=== PATIENT | male | born 1985 | race American Indian/Alaskan Native ===

== ENCOUNTER 2017-02-06 13:09 | Outpatient (CLI) | payer MEDICAID ==
--- NOTE | 2017-02-06 14:24 | XRay Report ---
LEFT ANKLE, 3 VIEWS: LEFT FOOT, 3 VIEWS: LEFT CALCANEUS, 2 VIEWS: History: Injury, pain. Bone mineralization is normal. A subtle nondisplaced transverse fracture is identified through the proximal shaft of the fifth metatarsal. No calcified callus is identified. The remaining bones of the left foot and ankle are intact and within normal limits. No significant joint pathology. The calcaneus is unremarkable. There is a linear radiodensity measuring 3 mm in the plantar soft tissues at the level of the tarsometatarsal junction. This is best demonstrated on the lateral image of the left foot. This could represent a radiopaque foreign body. Please correlate with the patient. IMPRESSION: Nondisplaced fracture of the fifth metatarsal shaft. Normal left ankle and calcaneus. Questionable soft tissue foreign body in the plantar soft tissues. See above and correlate with the image and patient.
== END 2017-02-06 13:10 | disposition home or self-care (01) ==
LOC: XRAY 13:09
PROVIDERS: ATTEND Family Medicine
DX: S92.352A Displaced fracture of fifth metatarsal bone, left foot, initial encounter for closed fracture (principal); X58.XXXA Exposure to other specified factors, initial encounter; Y93.89 Activity, other specified; Y92.89 Other specified places as the place of occurrence of the external cause; Y99.8 Other external cause status

== ENCOUNTER 2018-06-29 23:20 | Observation (INO) | payer MEDICAID ==
[2018-06-30 00:03] LABS: Basophils % (Auto) 0.3 % (0.0-1.8); Eosinophils # (Auto) 0.1 K/mm3 (0.0-0.4); Eosinophils % (Auto) 1.9 % (0.0-4.3); Hematocrit 36.8 % (35.5-45.6); Hemoglobin 12.4 gm/dl (11.8-15.2); Lymphocytes # (Auto) 1.7 K/mm3 (1.2-5.4); Lymphocytes % (Auto) 41.5 % (13.4-35.0); Mean Corpuscular HGB Conc 34 % (32-34); Mean Corpuscular Volume 91 fl (84-94); Monocytes # (Auto) 0.4 K/mm3 (0.0-0.8); Monocytes % (Auto) 8.8 % (0.0-7.3); Platelet Count 390 K/mm3 (140-440); Red Blood Count 4.06 M/mm3 (3.65-5.03); Red Cell Distribution Width 15.9 % (13.2-15.2)
[2018-06-30 00:33] LABS: Alanine Aminotransferase 46 units/L (7-56); Albumin 4.6 g/dL (3.9-5); Calcium 9.7 mg/dL (8.4-10.2); Hemolysis Index 2
[2018-06-30 01:06] LABS: BUN/Creatinine Ratio 12; Blood Urea Nitrogen 16 mg/dL (9-20)
[2018-06-30] MEDS ORDERED: NACL 0.9% 1000 ML 1,000 ML IV ONE (03:44)
[2018-06-30 04:36] LABS: Bilirubin,Urine NEG (Negative); Blood,Urine NEG (Negative); Color,Urine Straw (Yellow); Protein,Urine <15 mg/dL mg/dL (Negative); Urobilinogen,Urine < 2.0 mg/dL (<2.0)
[2018-06-30 04:45] LABS: Amphetamine Screen,Urine PRESUMPTIVE NEGATIVE; Benzodiazepines Screen,Urine PRESUMPTIVE NEGATIVE; Cannabinoid Screen,Urine PRESUMPTIVE NEGATIVE; Cocaine Screen,Urine PRESUMPTIVE NEGATIVE; Methadone Screen,Urine PRESUMPTIVE NEGATIVE; Opiate Screen,Urine PRESUMPTIVE NEGATIVE
[2018-06-30 04:48] LABS: RBC,Urine < 1.0 /HPF (0.0-6.0)
--- NOTE | 2018-06-30 04:57 | Emergency Department Report ---
History of Present Illness - General Chief Complaint: Overdose Stated Complaint: IBUPROFEN INGESTION Source: patient, family Mode of arrival: Wheelchair Limitations: Other - History of Present Illness Initial Comments: 32-year-old male past medical history of pica and autism presents to the hospital with accidental Motrin overdose. Patient witnessed his family member take Motrin and heat also took it thinking it was candy. At about 7:30 PM he took less than 200 pills of Motrin 200 mg. Chair Upholsterer reported that patient was initially lethargic but upon my examination at baseline mental status. No reports of vomiting. - Related Data Home Medications Medication Instructions Recorded Confirmed Last Taken Loratadine 10 mg PO DAILY 06/30/18 07/01/18 Unknown Mirtazapine 15 mg PO HS 06/30/18 07/01/18 Unknown QUEtiapine 300 mg PO HS 06/30/18 07/01/18 Unknown clonazePAM 2 mg PO HS 06/30/18 07/01/18 Unknown lamoTRIgine 200 mg PO BID 06/30/18 07/01/18 Unknown Allergies Allergy/AdvReac Type Severity Reaction Status Date / Time No Known Allergies Allergy Verified 07/01/18 11:52 ED Review of Systems ROS: Stated complaint: IBUPROFEN INGESTION Other details as noted in HPI Comment: All other systems reviewed and negative ED Past Medical Hx - Past Medical History Previous Medical History?: Yes Hx Psychiatric Treatment: Yes (aggresion) Additional medical history: Pica. Autsim - Surgical History Past Surgical History?: No - Social History Smoking Status: Never Smoker Substance Use Type: None - Medications Home Medications: Home Medications Medication Instructions Recorded Confirmed Last Taken Type Loratadine 10 mg PO DAILY 06/30/18 07/01/18 Unknown History Mirtazapine 15 mg PO HS 06/30/18 07/01/18 Unknown History QUEtiapine 300 mg PO HS 06/30/18 07/01/18 Unknown History clonazePAM 2 mg PO HS 06/30/18 07/01/18 Unknown History lamoTRIgine 200 mg PO BID 06/30/18 07/01/18 Unknown History ED Physical Exam - General Limitations: Other - Other Other exam information: General: No limitations, patient is alert in no acute distress Head exam: Atraumatic, normocephalic Eyes exam: Normal appearance, pupils equal reactive to light, extraocular movements intact ENT: Moist mucous membrane Neck exam: Normal inspection, full range of motion, no meningismus nontender Respiratory exam: Clear to auscultation bilateral, no wheezes, rales, crackles Cardiovascular: Normal rate and rhythm, normal heart sounds Abdomen: Soft, nondistended, and nontender, with normal bowel sounds, no rebound, or guarding Extremity: Full range of motion normal inspection no deformity Back: Normal Inspection, full range of motion, no tenderness Neurologic: Alert, cranial nerves intact, no motor or sensory deficit Psychiatric: normal affect, normal mood Skin: Warm, dry, intact ED Course Vital Signs 06/29/18 06/30/18 06/30/18 23:33 00:15 02:38 Temperature 97.3 F L Pulse Rate 118 H Respiratory 18 20 Rate Blood Pressure 120/88 Blood Pressure [Right] O2 Sat by Pulse 99 100 98 Oximetry 06/30/18 06/30/18 06/30/18 03:00 03:31 04:00 Temperature Pulse Rate 77 81 82 Respiratory 15 14 19 Rate Blood Pressure 110/76 110/76 120/86 Blood Pressure [Right] O2 Sat by Pulse Oximetry 06/30/18 06/30/18 06/30/18 04:31 05:00 05:55 Temperature Pulse Rate 67 75 Respiratory 17 13 16 Rate Blood Pressure 128/88 128/88 Blood Pressure 118/88 [Right] O2 Sat by Pulse 99 100 100 Oximetry 06/30/18 06/30/18 06/30/18 06:01 06:38 06:45 Temperature Pulse Rate 67 65 65 Respiratory 12 12 11 L Rate Blood Pressure 118/88 118/88 118/88 Blood Pressure [Right] O2 Sat by Pulse 100 Oximetry 06/30/18 06/30/18 06/30/18 06:51 07:01 07:11 Temperature Pulse Rate 63 79 Respiratory 12 16 12 Rate Blood Pressure 118/88 118/88 118/88 Blood Pressure [Right] O2 Sat by Pulse Oximetry 06/30/18 06/30/18 06/30/18 07:21 07:31 07:41 Temperature Pulse Rate Respiratory 14 13 15 Rate Blood Pressure 118/88 118/88 118/88 Blood Pressure [Right] O2 Sat by Pulse Oximetry 06/30/18 06/30/18 06/30/18 07:53 08:00 08:02 Temperature Pulse Rate 74 Respiratory 16 Rate Blood Pressure 120/84 121/92 Blood Pressure 121/72 [Right] O2 Sat by Pulse 99 100 Oximetry 06/30/18 06/30/18 06/30/18 08:10 08:21 08:31 Temperature Pulse Rate Respiratory Rate Blood Pressure 121/92 121/92 121/92 Blood Pressure [Right] O2 Sat by Pulse 84 99 90 Oximetry 06/30/18 06/30/18 06/30/18 08:40 08:55 09:11 Temperature Pulse Rate Respiratory Rate Blood Pressure 121/92 121/92 121/92 Blood Pressure [Right] O2 Sat by Pulse 91 93 Oximetry 06/30/18 06/30/18 06/30/18 09:21 09:31 09:40 Temperature Pulse Rate Respiratory Rate Blood Pressure 121/92 121/92 121/92 Blood Pressure [Right] O2 Sat by Pulse 99 99 Oximetry 06/30/18 06/30/18 06/30/18 09:55 10:00 10:11 Temperature Pulse Rate Respiratory Rate Blood Pressure 121/92 121/92 121/92 Blood Pressure [Right] O2 Sat by Pulse 93 78 L 82 L Oximetry 06/30/18 06/30/18 06/30/18 10:21 10:30 10:41 Temperature Pulse Rate Respiratory Rate Blood Pressure 121/92 121/92 121/92 Blood Pressure [Right] O2 Sat by Pulse 81 L 80 L 82 L Oximetry - Consultations Consultation #1: 06/30/18 04:52 I reconnected with poison control at this time. They do not recommend ETT in the hour. There are no current signs of QRS or QTC prolongation with ibuprofen overdose. Patient is at risk for metabolic acidosis. Discuss mild elevation of lactic acid. We'll continue to trend and look for improvement after hydration. If patient is at baseline mental status, no signs of GI bleeding clinically, and labs improve he may be discharged home as per poison control ED Medical Decision Making - Lab Data Result diagrams: 07/01/18 08:25 07/01/18 08:25 Lab Results 06/29/18 06/29/18 06/29/18 Range/Units 23:40 23:44 23:44 WBC 4.1 L (4.5-11.0) K/mm3 RBC 4.06 (3.65-5.03) M/mm3 Hgb 12.4 (11.8-15.2) gm/dl Hct 36.8 (35.5-45.6) % MCV 91 (84-94) fl MCH 30 (28-32) pg MCHC 34 (32-34) % RDW 15.9 H (13.2-15.2) % Plt Count 390 (140-440) K/mm3 Lymph % (Auto) 41.5 H (13.4-35.0) % [place] % (Auto) 8.8 H (0.0-7.3) % Eos % (Auto) 1.9 (0.0-4.3) % Baso % (Auto) 0.3 (0.0-1.8) % Lymph # 1.7 (1.2-5.4) K/mm3 [place] # 0.4 (0.0-0.8) K/mm3 Eos # 0.1 (0.0-0.4) K/mm3 Baso # 0.0 (0.0-0.1) K/mm3 Seg Neutrophils % 47.5 (40.0-70.0) % Seg Neutrophils # 2.0 (1.8-7.7) K/mm3 Sodium (137-145) mmol/L Potassium (3.6-5.0) mmol/L Chloride (98-107) mmol/L Carbon Dioxide (22-30) mmol/L Anion Gap mmol/L BUN (9-20) mg/dL Creatinine (0.8-1.5) mg/dL Estimated GFR ml/min BUN/Creatinine Ratio % Glucose (75-100) mg/dL Lactic Acid (0.7-2.0) mmol/L Calcium (8.4-10.2) mg/dL Total Bilirubin (0.1-1.2) mg/dL AST (5-40) units/L ALT (7-56) units/L Alkaline Phosphatase (35-129) units/L Total Protein (6.3-8.2) g/dL Albumin (3.9-5) g/dL Albumin/Globulin Ratio % Urine Color (Yellow) Urine Turbidity (Clear) Urine pH (5.0-7.0) Ur Specific [place] (1.003-1.030) Urine Protein (Negative) mg/dL Urine Glucose (UA) (Negative) mg/dL Urine Ketones (Negative) mg/dL Urine Blood (Negative) Urine Nitrite (Negative) Urine Bilirubin (Negative) Urine Urobilinogen (<2.0) mg/dL Ur Leukocyte Esterase (Negative) Urine WBC (Auto) (0.0-6.0) /HPF Urine RBC (Auto) (0.0-6.0) /HPF U Epithel Cells (Auto) (0-13.0) /HPF Salicylates (2.8-20.0) mg/dL Urine Opiates Screen Urine Methadone Screen Acetaminophen < 5.0 L (10.0-30.0) ug/mL Ur Barbiturates Screen Ur Phencyclidine Scrn Ur Amphetamines Screen U Benzodiazepines Scrn Urine Cocaine Screen U Marijuana (THC) Screen Drugs of Abuse Note Plasma/Serum Alcohol < 0.01 (0-0.07) % 06/29/18 06/29/18 06/30/18 Range/Units 23:45 23:55 00:29 WBC (4.5-11.0) K/mm3 RBC (3.65-5.03) M/mm3 Hgb (11.8-15.2) gm/dl Hct (35.5-45.6) % MCV (84-94) fl MCH (28-32) pg MCHC (32-34) % RDW (13.2-15.2) % Plt Count (140-440) K/mm3 Lymph % (Auto) (13.4-35.0) % [place] % (Auto) (0.0-7.3) % Eos % (Auto) (0.0-4.3) % Baso % (Auto) (0.0-1.8) % Lymph # (1.2-5.4) K/mm3 [place] # (0.0-0.8) K/mm3 Eos # (0.0-0.4) K/mm3 Baso # (0.0-0.1) K/mm3 Seg Neutrophils % (40.0-70.0) % Seg Neutrophils # (1.8-7.7) K/mm3 Sodium 139 (137-145) mmol/L Potassium 4.5 (3.6-5.0) mmol/L Chloride 94.9 L (98-107) mmol/L Carbon Dioxide 24 (22-30) mmol/L Anion Gap 25 mmol/L BUN 16 (9-20) mg/dL Creatinine 1.3 (0.8-1.5) mg/dL Estimated GFR > 60 ml/min BUN/Creatinine Ratio 12 % Glucose 93 (75-100) mg/dL Lactic Acid 2.60 H* (0.7-2.0) mmol/L Calcium 9.7 (8.4-10.2) mg/dL Total Bilirubin < 0.20 (0.1-1.2) mg/dL AST 39 (5-40) units/L ALT 46 (7-56) units/L Alkaline Phosphatase 105 (35-129) units/L Total Protein 7.8 (6.3-8.2) g/dL Albumin 4.6 (3.9-5) g/dL Albumin/Globulin Ratio 1.4 % Urine Color (Yellow) Urine Turbidity (Clear) Urine pH (5.0-7.0) Ur Specific [place] (1.003-1.030) Urine Protein (Negative) mg/dL Urine Glucose (UA) (Negative) mg/dL Urine Ketones (Negative) mg/dL Urine Blood (Negative) Urine Nitrite (Negative) Urine Bilirubin (Negative) Urine Urobilinogen (<2.0) mg/dL Ur Leukocyte Esterase (Negative) Urine WBC (Auto) (0.0-6.0) /HPF Urine RBC (Auto) (0.0-6.0) /HPF U Epithel Cells (Auto) (0-13.0) /HPF Salicylates < 0.3 L (2.8-20.0) mg/dL Urine Opiates Screen Urine Methadone Screen Acetaminophen (10.0-30.0) ug/mL Ur Barbiturates Screen Ur Phencyclidine Scrn Ur Amphetamines Screen U Benzodiazepines Scrn Urine Cocaine Screen U Marijuana (THC) Screen Drugs of Abuse Note Plasma/Serum Alcohol (0-0.07) % 06/30/18 06/30/18 06/30/18 Range/Units 02:06 04:25 04:25 WBC (4.5-11.0) K/mm3 RBC (3.65-5.03) M/mm3 Hgb (11.8-15.2) gm/dl Hct (35.5-45.6) % MCV (84-94) fl MCH (28-32) pg MCHC (32-34) % RDW (13.2-15.2) % Plt Count (140-440) K/mm3 Lymph % (Auto) (13.4-35.0) % [place] % (Auto) (0.0-7.3) % Eos % (Auto) (0.0-4.3) % Baso % (Auto) (0.0-1.8) % Lymph # (1.2-5.4) K/mm3 [place] # (0.0-0.8) K/mm3 Eos # (0.0-0.4) K/mm3 Baso # (0.0-0.1) K/mm3 Seg Neutrophils % (40.0-70.0) % Seg Neutrophils # (1.8-7.7) K/mm3 Sodium (137-145) mmol/L Potassium (3.6-5.0) mmol/L Chloride (98-107) mmol/L Carbon Dioxide (22-30) mmol/L Anion Gap mmol/L BUN (9-20) mg/dL Creatinine (0.8-1.5) mg/dL Estimated GFR ml/min BUN/Creatinine Ratio % Glucose (75-100) mg/dL Lactic Acid 2.90 H* (0.7-2.0) mmol/L Calcium (8.4-10.2) mg/dL Total Bilirubin (0.1-1.2) mg/dL AST (5-40) units/L ALT (7-56) units/L Alkaline Phosphatase (35-129) units/L Total Protein (6.3-8.2) g/dL Albumin (3.9-5) g/dL Albumin/Globulin Ratio % Urine Color Straw (Yellow) Urine Turbidity Clear (Clear) Urine pH 5.0 (5.0-7.0) Ur Specific [place] 1.008 (1.003-1.030) Urine Protein <15 mg/dl (Negative) mg/dL Urine Glucose (UA) Neg (Negative) mg/dL Urine Ketones Neg (Negative) mg/dL Urine Blood Neg (Negative) Urine Nitrite Neg (Negative) Urine Bilirubin Neg (Negative) Urine Urobilinogen < 2.0 (<2.0) mg/dL Ur Leukocyte Esterase Neg (Negative) Urine WBC (Auto) 1.0 (0.0-6.0) /HPF Urine RBC (Auto) < 1.0 (0.0-6.0) /HPF U Epithel Cells (Auto) < 1.0 (0-13.0) /HPF Salicylates (2.8-20.0) mg/dL Urine Opiates Screen Presumptive negative Urine Methadone Screen Presumptive negative Acetaminophen (10.0-30.0) ug/mL Ur Barbiturates Screen Presumptive negative Ur Phencyclidine Scrn Presumptive negative Ur Amphetamines Screen Presumptive negative U Benzodiazepines Scrn Presumptive negative Urine Cocaine Screen Presumptive negative U Marijuana (THC) Screen Presumptive negative Drugs of Abuse Note Disclamer Plasma/Serum Alcohol (0-0.07) % 06/30/18 06/30/18 Range/Units 05:54 06:55 WBC (4.5-11.0) K/mm3 RBC (3.65-5.03) M/mm3 Hgb (11.8-15.2) gm/dl Hct (35.5-45.6) % MCV (84-94) fl MCH (28-32) pg MCHC (32-34) % RDW (13.2-15.2) % Plt Count (140-440) K/mm3 Lymph % (Auto) (13.4-35.0) % [place] % (Auto) (0.0-7.3) % Eos % (Auto) (0.0-4.3) % Baso % (Auto) (0.0-1.8) % Lymph # (1.2-5.4) K/mm3 [place] # (0.0-0.8) K/mm3 Eos # (0.0-0.4) K/mm3 Baso # (0.0-0.1) K/mm3 Seg Neutrophils % (40.0-70.0) % Seg Neutrophils # (1.8-7.7) K/mm3 Sodium (137-145) mmol/L Potassium (3.6-5.0) mmol/L Chloride (98-107) mmol/L Carbon Dioxide (22-30) mmol/L Anion Gap mmol/L BUN (9-20) mg/dL Creatinine (0.8-1.5) mg/dL Estimated GFR ml/min BUN/Creatinine Ratio % Glucose (75-100) mg/dL Lactic Acid 2.30 H* 2.50 H* (0.7-2.0) mmol/L Calcium (8.4-10.2) mg/dL Total Bilirubin (0.1-1.2) mg/dL AST (5-40) units/L ALT (7-56) units/L Alkaline Phosphatase (35-129) units/L Total Protein (6.3-8.2) g/dL Albumin (3.9-5) g/dL Albumin/Globulin Ratio % Urine Color (Yellow) Urine Turbidity (Clear) Urine pH (5.0-7.0) Ur Specific [place] (1.003-1.030) Urine Protein (Negative) mg/dL Urine Glucose (UA) (Negative) mg/dL Urine Ketones (Negative) mg/dL Urine Blood (Negative) Urine Nitrite (Negative) Urine Bilirubin (Negative) Urine Urobilinogen (<2.0) mg/dL Ur Leukocyte Esterase (Negative) Urine WBC (Auto) (0.0-6.0) /HPF Urine RBC (Auto) (0.0-6.0) /HPF U Epithel Cells (Auto) (0-13.0) /HPF Salicylates (2.8-20.0) mg/dL Urine Opiates Screen Urine Methadone Screen Acetaminophen (10.0-30.0) ug/mL Ur Barbiturates Screen Ur Phencyclidine Scrn Ur Amphetamines Screen U Benzodiazepines Scrn Urine Cocaine Screen U Marijuana (THC) Screen Drugs of Abuse Note Plasma/Serum Alcohol (0-0.07) % - EKG Data -: EKG Interpreted by [place] EKG shows normal: sinus rhythm, axis (qrs 54), QRS complexes (qrsd 98), ST-T waves (no stemi, qrc 482) Rate: tachycardia (117) - EKG Data 06/30/18 04:59 Repeat EKG sinus rate 83 without acute changes. QRS axis 76, QRS [id number], QTC 473 - Medical Decision Making Patient's main risk from Motrin ingestion is metabolic acidosis as well as GI bleed from NSAIDs. Patient will be monitored for both in the ED. If he remains asymptomatic an elevated lactic acid improves he may be discharged home. Patient treated in the ED with IV hydration. He will be signed out to Dr Almeida to reassess for discharge. - Differential Diagnosis overdose, acidosis Critical care attestation.: If time is entered above; I have spent that time in minutes in the direct care of this critically ill patient, excluding procedure time. ED Disposition Clinical Impression: Motrin overdose Disposition: DC-01 TO HOME OR SELFCARE Is pt being admited?: No Does the pt Need Aspirin: No Condition: Stable
[2018-06-30] MEDS ORDERED: PROTONIX IV ONE (06:06)
--- NOTE | 2018-06-30 09:15 | History and Physical Report ---
History of Present Illness Date of examination: 06/30/18 Date of admission: 06/30/18 08:07 Chief complaint: Ibuprofen overdose History of present illness: 32-year-old male with past medical history of PICA and autism presents to the hospital with accidental Motrin overdose. Patient witnessed his caregiver to take Motrin thinking it was candy. Caregiver believes At about 7:30 PM he might have taken less than 200 pills of Motrin 200 mg. Ship Cleaner reported that patient was initially lethargic but upon my examination at baseline mental status. No reports of vomiting. He was admitted for further evaluation and management. Past Medical Hx - Past Medical History Previous Medical History?: Yes Hx Psychiatric Treatment: Yes (aggresion) Additional medical history: Pica. Autsim - Surgical History Past Surgical History?: No - Social History Smoking Status: Never Smoker Substance Use Type: None - Family History Unobtainable Medications and Allergies Allergies Allergy/AdvReac Type Severity Reaction Status Date / Time No Known Allergies Allergy Verified 07/01/18 11:52 Home Medications Medication Instructions Recorded Confirmed Last Taken Type Loratadine 10 mg PO DAILY 06/30/18 07/01/18 Unknown History Mirtazapine 15 mg PO HS 06/30/18 07/01/18 Unknown History QUEtiapine 300 mg PO HS 06/30/18 07/01/18 Unknown History clonazePAM 2 mg PO HS 06/30/18 07/01/18 Unknown History lamoTRIgine 200 mg PO BID 06/30/18 07/01/18 Unknown History Active Meds: Active Medications Sodium Chloride (Nacl 0.9% 1000 Ml) 1,000 mls @ 100 mls/hr IV DIRECT LAUREN Miscellaneous Medication (Clonazepam) 2 mg PO HS LAUREN Miscellaneous Medication (Lamotrigine) 200 mg PO BID LAUREN Miscellaneous Medication (Loratadine) 10 mg PO DAILY LAUREN Miscellaneous Medication (Mirtazapine) 15 mg PO HS LAUREN Miscellaneous Medication (Quetiapine) 300 mg PO HS LAUREN Review of Systems ROS unobtainable: due to mental status Exam - Physical Exam Narrative exam: limited exam, not cooperative with physical exam. - Constitutional Vitals: Temp Pulse Resp BP Pulse Ox 97.3 F L 74 16 121/72 100 06/29/18 23:33 06/30/18 08:02 06/30/18 08:02 06/30/18 08:02 06/30/18 08:02 General appearance: Present: no acute distress Results - Labs CBC & Chem 7: 07/01/18 08:25 07/01/18 08:25 Labs: Abnormal lab results 06/29/18 06/29/18 06/29/18 Range/Units 23:40 23:44 23:45 WBC 4.1 L (4.5-11.0) K/mm3 RDW 15.9 H (13.2-15.2) % Lymph % (Auto) 41.5 H (13.4-35.0) % [place] % (Auto) 8.8 H (0.0-7.3) % Chloride (98-107) mmol/L Lactic Acid (0.7-2.0) mmol/L Salicylates < 0.3 L (2.8-20.0) mg/dL Acetaminophen < 5.0 L (10.0-30.0) ug/mL 06/29/18 06/30/18 06/30/18 Range/Units 23:55 00:29 02:06 WBC (4.5-11.0) K/mm3 RDW (13.2-15.2) % Lymph % (Auto) (13.4-35.0) % [place] % (Auto) (0.0-7.3) % Chloride 94.9 L (98-107) mmol/L Lactic Acid 2.60 H* 2.90 H* (0.7-2.0) mmol/L Salicylates (2.8-20.0) mg/dL Acetaminophen (10.0-30.0) ug/mL 06/30/18 06/30/18 Range/Units 05:54 06:55 WBC (4.5-11.0) K/mm3 RDW (13.2-15.2) % Lymph % (Auto) (13.4-35.0) % [place] % (Auto) (0.0-7.3) % Chloride (98-107) mmol/L Lactic Acid 2.30 H* 2.50 H* (0.7-2.0) mmol/L Salicylates (2.8-20.0) mg/dL Acetaminophen (10.0-30.0) ug/mL Assessment and Plan Motrin overdose, unintentional Autism, h/o PICA h/o lactic acidosis, likely from overdose - monitor clinically - resume home meds, iv fluid - monitor CBC/BMP, sitter at bedside - regular diet, possible d/c in the am
[2018-06-30] MEDS ORDERED: NACL 0.9% 1000 ML 1,000 ML IV SCH (10:00)
[2018-06-30] MEDS ORDERED: LAMOTRIGINE 200 MG PO SCH (10:00)
[2018-06-30] MEDS ORDERED: NON-FORMULARY (Loratadine 10 MG) PO SCH (10:00)
[2018-06-30] MEDS: LaMICtal PO SCH ×2 (12:59→23:32)
[2018-06-30] MEDS: CLARITIN PO SCH (12:59)
[2018-06-30] MEDS ORDERED: ZOFRAN IV PRN (19:33)
[2018-06-30] MEDS ORDERED: CLONAZEPAM 2 MG PO SCH (22:00)
[2018-06-30] MEDS ORDERED: QUETIAPINE 300 MG PO SCH (22:00)
[2018-06-30] MEDS ORDERED: NON-FORMULARY (Mirtazapine 15 MG) PO SCH (22:00)
[2018-06-30] MEDS ORDERED: REMERON PO SCH (22:00)
[2018-07-01 05:40] VITALS: BP 97/64
[2018-07-01 08:50] LABS: Basophils % (Auto) 0.4 % (0.0-1.8); Eosinophils # (Auto) 0.1 K/mm3 (0.0-0.4); Eosinophils % (Auto) 0.8 % (0.0-4.3); Hematocrit 36.2 % (35.5-45.6); Lymphocytes % (Auto) 12.6 % (13.4-35.0); Mean Corpuscular HGB Conc 33 % (32-34); Mean Corpuscular Volume 91 fl (84-94); Monocytes # (Auto) 1.1 K/mm3 (0.0-0.8); Monocytes % (Auto) 13.8 % (0.0-7.3); Platelet Count 340 K/mm3 (140-440); Red Cell Distribution Width 16.1 % (13.2-15.2)
[2018-07-01] MEDS: LaMICtal PO SCH (08:59)
[2018-07-01] MEDS: CLARITIN PO SCH (08:59)
[2018-07-01 09:06] LABS: Calcium 8.4 mg/dL (8.4-10.2)
[2018-07-01 09:11] LABS: Alanine Aminotransferase 40 units/L (7-56); Albumin 4.3 g/dL (3.9-5)
[2018-07-01 09:12] LABS: Bilirubin,Direct < 0.2 mg/dL (0-0.2)
--- NOTE | 2018-07-01 09:55 | Discharge Summary ---
Providers - Providers Date of Admission: 06/30/18 08:07 Date of discharge: 07/01/18 Attending physician: JANE CONSTANTINO Primary care physician: [facility] MD MAXIMIL[facility] Hospitalization Condition: Stable Hospital course: 32-year-old male with past medical history of PICA and autism presents to the hospital with accidental Motrin overdose. Patient witnessed by his caregiver to take Motrin as patient was thinking it was candy. Caregiver believes At about 7:30 PM he might have taken less than 200 pills of Motrin 200 mg. Technical Trainer reported that patient was initially lethargic but then mental status came back to baseline. He was admitted for further evaluation and management, monitored overnight, tolerating diet, next day he was then discharged with his caregiver. Discharge diagnosis: Motrin overdose, unintentional Autism, h/o PICA h/o lactic acidosis, likely from overdose Disposition: DC/TX-70 ANOTHER TYPE HLTHCARE Time spent for discharge: 34 minutes Core Measure Documentation - Palliative Care Palliative Care/ Comfort Measures: Not Applicable - Core Measures Any of the following diagnoses?: none Exam - Constitutional Vitals: Temp Pulse Resp BP Pulse Ox 97.5 F L 74 18 97/64 82 L 07/01/18 05:36 06/30/18 08:02 07/01/18 05:36 07/01/18 05:36 06/30/18 10:41 General appearance: Present: no acute distress - Respiratory Respiratory effort: normal - Cardiovascular Heart Sounds: Present: S1 & S2 - Extremities Extremities: no ischemia - Integumentary Integumentary: Present: warm, dry - Neurologic Neurologic: CNII-XII intact Plan Activity: fall precautions Diet: regular Additional Instructions: BMP in two days Follow up with: MARIBEL BARRIENTOS MD [Primary Care Provider] - 3-5 Days
--- NOTE | 2018-07-01 10:03 | Event Note ---
Date: 07/01/18 Patient home care associate came to pickup the patient as he has an apt with GI outpt, so patient was discharged. When patient was discharged his am BMP was pending. Repeat BMP following discharge showed elevated Cr, he had normal Cr level prior. I called the home care associate and inform this. Advised that patient could be bring back to the hospital for further management. She verbalized understanding.
== END 2018-07-01 09:20 | disposition other institution (70) ==
LOC: ED 23:20 → INTOOBSV 06-30 08:07 → 3A 06-30 08:07
PROVIDERS: ADMIT Internal Medicine; ATTEND Internal Medicine
DX: T39.311A Poisoning by propionic acid derivatives, accidental (unintentional), initial encounter (principal); F84.0 Autistic disorder; E87.2 Acidosis; Y92.9 Unspecified place or not applicable
CPT/HCPCS: 36415; 80048; 80053; 80076; 80307; 81001; 82140; 85025; 93005; 93010; 96374; 96375; 99284; C9113; G0378; G0480; J2405; J7030; 80320; 96361

== ENCOUNTER 2018-07-01 11:50 | Inpatient (IN) | payer MEDICAID ==
[2018-07-01] MEDS ORDERED: NACL 0.9% 1000 ML 1,000 ML IV ONE ×2 (12:32→12:34)
[2018-07-01 12:47] LABS: Basophils % (Auto) 0.4 % (0.0-1.8); Eosinophils % (Auto) 0.3 % (0.0-4.3); Hemoglobin 11.9 gm/dl (11.8-15.2); Lymphocytes # (Auto) 0.8 K/mm3 (1.2-5.4); Lymphocytes % (Auto) 10.6 % (13.4-35.0); Mean Corpuscular HGB Conc 33 % (32-34); Mean Corpuscular Volume 90 fl (84-94); Monocytes # (Auto) 0.8 K/mm3 (0.0-0.8); Monocytes % (Auto) 11.5 % (0.0-7.3); Platelet Count 321 K/mm3 (140-440); Red Blood Count 3.98 M/mm3 (3.65-5.03); Red Cell Distribution Width 16.6 % (13.2-15.2)
[2018-07-01 12:56] LABS: INR 1.05 (0.87-1.13)
[2018-07-01 12:57] LABS: Partial Thromboplastin Time 27.3 Sec. (24.2-36.6)
[2018-07-01 13:11] LABS: Alanine Aminotransferase 38 units/L (7-56); Albumin 4.3 g/dL (3.9-5); BUN/Creatinine Ratio 11; Blood Urea Nitrogen 30 mg/dL (9-20); Calcium 8.4 mg/dL (8.4-10.2); Hemolysis Index 2
--- NOTE | 2018-07-01 14:10 | Emergency Department Report ---
ED General Adult HPI - General Chief complaint: Weakness Stated complaint: DEHYDRATED/LOW BP Time Seen by Provider: 07/01/18 12:11 Source: patient, family Mode of arrival: Ambulatory Limitations: No Limitations - History of Present Illness Initial comments: Patient discharged from our facility this morning status post Ibuprofen overdose. Patient was at his follow-up appointment when he began to have episodes of vomiting and became lethargic per to caregiver. On arrival to the ED the patient's blood pressure was 88/55 with a heart rate of 110 and the patient was somnolent. -: Sudden Severity scale (0 -10): 0 Improves with: none Worsens with: none Treatments Prior to Arrival: none - Related Data Home Medications Medication Instructions Recorded Confirmed Last Taken Loratadine 10 mg PO DAILY 06/30/18 07/01/18 Unknown Mirtazapine 15 mg PO HS 06/30/18 07/01/18 Unknown QUEtiapine 300 mg PO HS 06/30/18 07/01/18 Unknown clonazePAM 2 mg PO HS 06/30/18 07/01/18 Unknown lamoTRIgine 200 mg PO BID 06/30/18 07/01/18 Unknown Allergies Allergy/AdvReac Type Severity Reaction Status Date / Time No Known Allergies Allergy Verified 07/01/18 11:52 ED Review of Systems ROS: Stated complaint: DEHYDRATED/LOW BP Other details as noted in HPI Comment: Unobtainable due to pts medical conditions ED Past Medical Hx - Past Medical History Hx Psychiatric Treatment: Yes (aggresion) Additional medical history: Pica. Autsim - Social History Smoking Status: Never Smoker Substance Use Type: None - Medications Home Medications: Home Medications Medication Instructions Recorded Confirmed Last Taken Type Loratadine 10 mg PO DAILY 06/30/18 07/01/18 Unknown History Mirtazapine 15 mg PO HS 06/30/18 07/01/18 Unknown History QUEtiapine 300 mg PO HS 06/30/18 07/01/18 Unknown History clonazePAM 2 mg PO HS 06/30/18 07/01/18 Unknown History lamoTRIgine 200 mg PO BID 06/30/18 07/01/18 Unknown History ED Physical Exam - General Limitations: No Limitations General appearance: alert, in no apparent distress, other (somnolent) - Head Head exam: Present: atraumatic, normocephalic - Eye Eye exam: Present: normal appearance - ENT ENT exam: Present: mucous membranes dry - Neck Neck exam: Present: normal inspection - Respiratory Respiratory exam: Present: normal lung sounds bilaterally. Absent: respiratory distress - Cardiovascular Cardiovascular Exam: Present: normal rhythm, tachycardia. Absent: systolic murmur, diastolic murmur, rubs, gallop - GI/Abdominal GI/Abdominal exam: Present: soft, normal bowel sounds. Absent: distended, tenderness - Rectal Rectal exam: Present: deferred - Extremities Exam Extremities exam: Present: normal inspection - Back Exam Back exam: Present: normal inspection - Neurological Exam Neurological exam: Present: alert, oriented X3, CN II-XII intact. Absent: motor sensory deficit - Psychiatric Psychiatric exam: Present: normal affect, normal mood - Skin Skin exam: Present: warm, dry, intact, normal color. Absent: rash ED Course Vital Signs 07/01/18 07/01/18 07/01/18 12:46 13:04 15:37 Temperature 97.9 F 97.9 F Pulse Rate 80 80 75 Respiratory 15 15 15 Rate Blood Pressure 104/71 Blood Pressure 104/71 105/75 [Right] O2 Sat by Pulse 99 99 100 Oximetry 07/01/18 07/01/18 16:46 18:17 Temperature 97.5 F L Pulse Rate 81 70 Respiratory 22 16 Rate Blood Pressure Blood Pressure 114/72 [Right] O2 Sat by Pulse 99 100 Oximetry ED Medical Decision Making - Lab Data Result diagrams: 07/01/18 12:21 07/01/18 12:21 Lab Results 07/01/18 07/01/18 07/01/18 Range/Units 12:21 12:21 12:21 WBC 7.4 (4.5-11.0) K/mm3 RBC 3.98 (3.65-5.03) M/mm3 Hgb 11.9 (11.8-15.2) gm/dl Hct 36.0 (35.5-45.6) % MCV 90 (84-94) fl MCH 30 (28-32) pg MCHC 33 (32-34) % RDW 16.6 H (13.2-15.2) % Plt Count 321 (140-440) K/mm3 Lymph % (Auto) 10.6 L (13.4-35.0) % [place] % (Auto) 11.5 H (0.0-7.3) % Eos % (Auto) 0.3 (0.0-4.3) % Baso % (Auto) 0.4 (0.0-1.8) % Lymph # 0.8 L (1.2-5.4) K/mm3 [place] # 0.8 (0.0-0.8) K/mm3 Eos # 0.0 (0.0-0.4) K/mm3 Baso # 0.0 (0.0-0.1) K/mm3 Seg Neutrophils % 77.2 H (40.0-70.0) % Seg Neutrophils # 5.7 (1.8-7.7) K/mm3 PT 14.4 (12.2-14.9) Sec. INR 1.05 (0.87-1.13) APTT 27.3 (24.2-36.6) Sec. Sodium 140 (137-145) mmol/L Potassium 4.4 (3.6-5.0) mmol/L Chloride 99.9 (98-107) mmol/L Carbon Dioxide 19 L (22-30) mmol/L Anion Gap 26 mmol/L BUN 30 H (9-20) mg/dL Creatinine 2.7 H (0.8-1.5) mg/dL Estimated GFR 34 ml/min BUN/Creatinine Ratio 11 % Glucose 100 (75-100) mg/dL Lactic Acid (0.7-2.0) mmol/L Calcium 8.4 (8.4-10.2) mg/dL Total Bilirubin < 0.20 (0.1-1.2) mg/dL AST 24 (5-40) units/L ALT 38 (7-56) units/L Alkaline Phosphatase 90 (35-129) units/L Total Protein 7.2 (6.3-8.2) g/dL Albumin 4.3 (3.9-5) g/dL Albumin/Globulin Ratio 1.5 % 07/01/18 Range/Units 12:21 WBC (4.5-11.0) K/mm3 RBC (3.65-5.03) M/mm3 Hgb (11.8-15.2) gm/dl Hct (35.5-45.6) % MCV (84-94) fl MCH (28-32) pg MCHC (32-34) % RDW (13.2-15.2) % Plt Count (140-440) K/mm3 Lymph % (Auto) (13.4-35.0) % [place] % (Auto) (0.0-7.3) % Eos % (Auto) (0.0-4.3) % Baso % (Auto) (0.0-1.8) % Lymph # (1.2-5.4) K/mm3 [place] # (0.0-0.8) K/mm3 Eos # (0.0-0.4) K/mm3 Baso # (0.0-0.1) K/mm3 Seg Neutrophils % (40.0-70.0) % Seg Neutrophils # (1.8-7.7) K/mm3 PT (12.2-14.9) Sec. INR (0.87-1.13) APTT (24.2-36.6) Sec. Sodium (137-145) mmol/L Potassium (3.6-5.0) mmol/L Chloride (98-107) mmol/L Carbon Dioxide (22-30) mmol/L Anion Gap mmol/L BUN (9-20) mg/dL Creatinine (0.8-1.5) mg/dL Estimated GFR ml/min BUN/Creatinine Ratio % Glucose (75-100) mg/dL Lactic Acid 1.40 (0.7-2.0) mmol/L Calcium (8.4-10.2) mg/dL Total Bilirubin (0.1-1.2) mg/dL AST (5-40) units/L ALT (7-56) units/L Alkaline Phosphatase (35-129) units/L Total Protein (6.3-8.2) g/dL Albumin (3.9-5) g/dL Albumin/Globulin Ratio % Critical Care Time: Yes Critical care time in (mins) excluding proc time.: 35 Critical care attestation.: If time is entered above; I have spent that time in minutes in the direct care of this critically ill patient, excluding procedure time. ED Disposition Clinical Impression: Acute renal failure, Hypotension Disposition: OP ADMIT IP TO THIS HOSP Is pt being admited?: Yes Does the pt Need Aspirin: No Condition: Fair
[2018-07-01] MEDS: MAXIPIME/NS 2 GM/100 ML 2 GM/100 ML BAG IV SCH ×2 (14:12→22:48)
--- NOTE | 2018-07-01 14:18 | XRay Report ---
PROCEDURE: XR CHEST 1V AP TECHNIQUE: Chest radiograph single view. HISTORY: hypotensive with fever COMPARISONS: None . FINDINGS: Heart: Normal. Mediastinum/Vessels: Normal. Lungs/Pleural space: Normal. Bony thorax: No acute osseous abnormality. Chronic appearing fracture left anterior lateral seventh r ib. Life support devices: None. IMPRESSION: No acute cardiopulmonary abnormality. This document is electronically signed by Migue Heller MD., Jul 01 2018 02:16:25 PM ET
[2018-07-01] MEDS ORDERED: ZOFRAN IV PRN ×2 (16:33→16:34)
[2018-07-01] MEDS ORDERED: TYLENOL PO PRN ×2 (16:33→16:34)
[2018-07-01] MEDS ORDERED: SODIUM CHLORIDE FLUSH SYRINGE 10 ML IV PRN ×2 (16:33→16:34)
[2018-07-01] MEDS ORDERED: MORPHINE IV PRN (16:33)
--- NOTE | 2018-07-01 16:33 | History and Physical Report ---
History of Present Illness Date of examination: 07/01/18 Medications and Allergies Allergies Allergy/AdvReac Type Severity Reaction Status Date / Time No Known Allergies Allergy Verified 07/01/18 11:52 Home Medications Medication Instructions Recorded Confirmed Last Taken Type Loratadine 10 mg PO DAILY 06/30/18 07/01/18 Unknown History Mirtazapine 15 mg PO HS 06/30/18 07/01/18 Unknown History QUEtiapine 300 mg PO HS 06/30/18 07/01/18 Unknown History clonazePAM 2 mg PO HS 06/30/18 07/01/18 Unknown History lamoTRIgine 200 mg PO BID 06/30/18 07/01/18 Unknown History Active Meds: Active Medications Cefepime HCl (Maxipime/Ns 2 Gm/100 Ml) 2 gm in 100 mls @ 200 mls/hr IV Q8HR [facility]; Protocol Last Admin: 07/01/18 14:12 Dose: 200 mls/hr Documented by: Exam - Constitutional Vitals: Temp Pulse Resp BP Pulse Ox 97.9 F 75 15 105/75 100 07/01/18 13:04 07/01/18 15:37 07/01/18 15:37 07/01/18 15:37 07/01/18 15:37 Results - Labs CBC & Chem 7: 07/01/18 12:21 07/01/18 12:21 Labs: Laboratory Last Values WBC 7.4 K/mm3 (4.5-11.0) 07/01/18 12:21 RBC 3.98 M/mm3 (3.65-5.03) 07/01/18 12:21 Hgb 11.9 gm/dl (11.8-15.2) 07/01/18 12:21 Hct 36.0 % (35.5-45.6) 07/01/18 12:21 MCV 90 fl (84-94) 07/01/18 12:21 MCH 30 pg (28-32) 07/01/18 12:21 MCHC 33 % (32-34) 07/01/18 12:21 RDW 16.6 % (13.2-15.2) H 07/01/18 12:21 Plt Count 321 K/mm3 (140-440) 07/01/18 12:21 Lymph % (Auto) 10.6 % (13.4-35.0) L 07/01/18 12:21 [place] % (Auto) 11.5 % (0.0-7.3) H 07/01/18 12:21 Eos % (Auto) 0.3 % (0.0-4.3) 07/01/18 12:21 Baso % (Auto) 0.4 % (0.0-1.8) 07/01/18 12:21 Lymph # 0.8 K/mm3 (1.2-5.4) L 07/01/18 12:21 [place] # 0.8 K/mm3 (0.0-0.8) 07/01/18 12:21 Eos # 0.0 K/mm3 (0.0-0.4) 07/01/18 12:21 Baso # 0.0 K/mm3 (0.0-0.1) 07/01/18 12:21 Seg Neutrophils % 77.2 % (40.0-70.0) H 07/01/18 12:21 Seg Neutrophils # 5.7 K/mm3 (1.8-7.7) 07/01/18 12:21 PT 14.4 Sec. (12.2-14.9) 07/01/18 12:21 INR 1.05 (0.87-1.13) 07/01/18 12:21 APTT 27.3 Sec. (24.2-36.6) 07/01/18 12:21 Sodium 140 mmol/L (137-145) 07/01/18 12:21 Potassium 4.4 mmol/L (3.6-5.0) 07/01/18 12:21 Chloride 99.9 mmol/L (98-107) 07/01/18 12:21 Carbon Dioxide 19 mmol/L (22-30) L 07/01/18 12:21 26 mmol/L 07/01/18 12:21 BUN 30 mg/dL (9-20) H 07/01/18 12:21 2.7 mg/dL (0.8-1.5) H 07/01/18 12:21 Estimated GFR 34 ml/min 07/01/18 12:21 11 % 07/01/18 12:21 Glucose 100 mg/dL (75-100) 07/01/18 12:21 Lactic Acid 1.70 mmol/L (0.7-2.0) 07/01/18 15:16 Calcium 8.4 mg/dL (8.4-10.2) 07/01/18 12:21 < 0.20 mg/dL (0.1-1.2) 07/01/18 12:21 AST 24 units/L (5-40) 07/01/18 12:21 ALT 38 units/L (7-56) 07/01/18 12:21 90 units/L (35-129) 07/01/18 12:21 7.2 g/dL (6.3-8.2) 07/01/18 12:21 4.3 g/dL (3.9-5) 07/01/18 12:21 1.5 % 07/01/18 12:21
[2018-07-01] MEDS ORDERED: PERCOCET 5/325 PO PRN (16:34)
[2018-07-01] MEDS ORDERED: D5NS 1,000 ML IV SCH (17:00)
[2018-07-01] MEDS: SODIUM CHLORIDE FLUSH SYRINGE 10 ML IV SCH (21:52)
[2018-07-01] MEDS: PEPCID IV SCH (21:52)
[2018-07-01] MEDS: NACL 0.9% 1000 ML 1,000 ML IV SCH (21:53)
[2018-07-01] MEDS ORDERED: SODIUM CHLORIDE FLUSH SYRINGE 10 ML IV SCH (22:00)
[2018-07-02] MEDS: MAXIPIME/NS 2 GM/100 ML 2 GM/100 ML BAG IV SCH ×3 (06:02→23:17)
--- NOTE | 2018-07-02 06:30 | Event Note ---
Date: 07/01/18 See H/p in reports MAXIME with possible ATN Worsening Bun/creatinine Ibuprogen ingestion 2 days ago Was discharged in AM Labs were pending
--- NOTE | 2018-07-02 06:55 | History and Physical Report ---
CHIEF COMPLAINT: 1. Severe weakness. 2. Vomiting x 2 after discharge. HISTORY OF PRESENT ILLNESS: The patient was a 32-year-old -[place] male with history of autism, had ibuprofen overdose. The patient was discharged today, so the patient went for GI appointment, then started vomiting and became lethargic per caregiver. The patient was brought in back here. The patient's blood pressure was 88/55 and heart rate of 110. Lethargic. The patient was treated for ibuprofen overdose, was stable at the time of discharge. His labs were pending. The initial labs were normal. In the Emergency Room, the creatinine was high and at the time of discharge, creatinine was 2.2 and jumped from 16 and 1.3 on 06/29/2018 to 27 and 2.2 on 07/01/2018. The patient also had a positive lactic acid, which normalized on 07/01/2018. PAST MEDICAL HISTORY: Significant for autism, aggressive behavior ____. SOCIAL HISTORY: Does not smoke. PAST SURGICAL HISTORY: None. FAMILY HISTORY: Unremarkable. REVIEW OF SYSTEMS: Significant for eating anything. He comes across including IV lines and IV tubing. Ingestion of ibuprofen 3 days ago. Vomiting x 2. Nausea present. The patient is a poor historian. Otherwise, review of systems is negative. Bit lethargic. PHYSICAL EXAMINATION: GENERAL: Young male, cooperative during examination. Alert, but not oriented. VITAL SIGNS: Temperature 97.2, pulse is 70, respirations 16, sats are 100%, blood pressure 130/79. HEENT: Unremarkable. Pupils equal and reactive. NECK: Supple, no lymphadenopathy, no thyromegaly. LUNGS: Clear to auscultation and percussion. Good air entry. CARDIOVASCULAR: S1, S2 heard. No gallop, no murmur, no rub. Apical impulse in left fifth intercostal space and midclavicular line. ABDOMEN: Soft and benign. No hepatosplenomegaly. No guarding, no rigidity. Hernial orifices are normal. EXTREMITIES: Good pedal pulses. No pedal edema. CENTRAL NERVOUS SYSTEM: Alert, oriented x 1. SKIN: Normal. LABORATORY DATA: Significant for BUN and creatinine, which has jumped from 16 and 1.3 to 27 and 2.2 and the next one was 30 and 2.7. The bicarbonate was low at 19. Lactic acid was normal. Urine was normal. Drug screen was normal. ASSESSMENT AND PLAN: 1. Acute kidney injury secondary to ibuprofen and vomiting. 2. Acute tubular necrosis present. IV fluids to be given. Monitor BUN and creatinine. 3. Acute gastroenteritis secondary to Motrin ingestion. IV Protonix for now. Clear liquid started. 4. Autism. Supportive care. 5. Deep venous thrombosis prophylaxis, Lovenox 40 mg subcutaneous daily. Nephrology consult requested. JOB# [id number] VSM/NTS
[2018-07-02 07:00] LABS: Basophils % (Auto) 0.5 % (0.0-1.8); Eosinophils # (Auto) 0.1 K/mm3 (0.0-0.4); Hematocrit 38.4 % (35.5-45.6); Hemoglobin 12.7 gm/dl (11.8-15.2); Lymphocytes # (Auto) 1.3 K/mm3 (1.2-5.4); Mean Corpuscular HGB Conc 33 % (32-34); Mean Corpuscular Volume 91 fl (84-94); Monocytes # (Auto) 0.7 K/mm3 (0.0-0.8); Monocytes % (Auto) 11.3 % (0.0-7.3); Platelet Count 310 K/mm3 (140-440); Red Blood Count 4.23 M/mm3 (3.65-5.03); Red Cell Distribution Width 16.9 % (13.2-15.2)
[2018-07-02 07:23] LABS: Albumin 4.7 g/dL (3.9-5); Calcium 8.6 mg/dL (8.4-10.2)
[2018-07-02] MEDS: PEPCID IV SCH ×2 (10:15→23:05)
[2018-07-02] MEDS: SODIUM CHLORIDE FLUSH SYRINGE 10 ML IV SCH ×2 (10:17→23:06)
--- NOTE | 2018-07-02 11:37 | Progress Note ---
Assessment and Plan Assessment and plan: MAXIME Admitted Nephrology consulted cont iv fluids ATN Acute gastroenteritis. Monitor start Renal diet Autism cont meds supportive care full code status History Interval history: Elevated Creatinine Hospitalist Physical - Physical exam Narrative exam: Gen: Not in acute distress, lying in bed, HEENT: Normocephalic, atraumatic Neck: supple, no JVD Heart: S1 and S2 reg, no murmurs, rubs or gallop Lungs: Clear, no crackles, no wheeze Abd: soft, non tender, non distended, normal BS Ext: No edema, no clubbing, no cyanosis, Neuro: Awake,alert, Autistic - Constitutional Vitals: Temp Pulse Resp BP Pulse Ox 97.2 F L 70 16 116/78 67 L 07/02/18 05:09 07/01/18 18:17 07/02/18 05:09 07/02/18 05:09 07/01/18 18:47 Results - Labs CBC & Chem 7: 07/02/18 06:07 07/02/18 06:07 Labs: Laboratory Last Values WBC 6.4 K/mm3 (4.5-11.0) 07/02/18 06:07 RBC 4.23 M/mm3 (3.65-5.03) 07/02/18 06:07 Hgb 12.7 gm/dl (11.8-15.2) 07/02/18 06:07 Hct 38.4 % (35.5-45.6) 07/02/18 06:07 MCV 91 fl (84-94) 07/02/18 06:07 MCH 30 pg (28-32) 07/02/18 06:07 MCHC 33 % (32-34) 07/02/18 06:07 RDW 16.9 % (13.2-15.2) H 07/02/18 06:07 Plt Count 310 K/mm3 (140-440) 07/02/18 06:07 Lymph % (Auto) 21.0 % (13.4-35.0) 07/02/18 06:07 [place] % (Auto) 11.3 % (0.0-7.3) H 07/02/18 06:07 Eos % (Auto) 2.0 % (0.0-4.3) 07/02/18 06:07 Baso % (Auto) 0.5 % (0.0-1.8) 07/02/18 06:07 Lymph # 1.3 K/mm3 (1.2-5.4) 07/02/18 06:07 [place] # 0.7 K/mm3 (0.0-0.8) 07/02/18 06:07 Eos # 0.1 K/mm3 (0.0-0.4) 07/02/18 06:07 Baso # 0.0 K/mm3 (0.0-0.1) 07/02/18 06:07 Seg Neutrophils % 65.2 % (40.0-70.0) 07/02/18 06:07 Seg Neutrophils # 4.2 K/mm3 (1.8-7.7) 07/02/18 06:07 PT 14.4 Sec. (12.2-14.9) 07/01/18 12:21 INR 1.05 (0.87-1.13) 07/01/18 12:21 APTT 27.3 Sec. (24.2-36.6) 07/01/18 12:21 Sodium 138 mmol/L (137-145) 07/02/18 06:07 Potassium 4.5 mmol/L (3.6-5.0) 07/02/18 06:07 Chloride 104.0 mmol/L (98-107) 07/02/18 06:07 Carbon Dioxide 19 mmol/L (22-30) L 07/02/18 06:07 20 mmol/L 07/02/18 06:07 BUN 22 mg/dL (9-20) H 07/02/18 06:07 1.9 mg/dL (0.8-1.5) H 07/02/18 06:07 Estimated GFR 50 ml/min 07/02/18 06:07 12 % 07/02/18 06:07 Glucose 87 mg/dL (75-100) 07/02/18 06:07 Lactic Acid 1.70 mmol/L (0.7-2.0) 07/01/18 15:16 Calcium 8.6 mg/dL (8.4-10.2) 07/02/18 06:07 Phosphorus 2.80 mg/dL (2.5-4.5) 07/02/18 06:07 Magnesium 2.50 mg/dL (1.7-2.3) H 07/02/18 06:07 0.20 mg/dL (0.1-1.2) 07/02/18 06:07 AST 28 units/L (5-40) 07/02/18 06:07 ALT 35 units/L (7-56) 07/02/18 06:07 94 units/L (35-129) 07/02/18 06:07 8.0 g/dL (6.3-8.2) 07/02/18 06:07 4.7 g/dL (3.9-5) 07/02/18 06:07 1.4 % 07/02/18 06:07 Active Medications - Current Medications Current Medications: Generic Name Dose Route Start Last Admin Trade Name Freq PRN Reason Stop Dose Admin Acetaminophen 650 mg 07/01/18 16:34 Tylenol PO Q4H PRN Pain MILD(1-3)/Fever >100.5/MEJIA Famotidine 20 mg 07/01/18 22:00 07/02/18 10:15 Pepcid IV 20 mg BID LAUREN Administration Cefepime HCl 2 gm in 100 mls @ 200 mls/hr 07/01/18 14:00 07/02/18 06:02 Maxipime/Ns 2 Gm/100 Ml IV 200 mls/hr Q8HR LAUREN Administration Protocol Sodium Chloride 1,000 mls @ 75 mls/hr 07/01/18 22:00 07/01/18 21:53 Nacl 0.9% 1000 Ml IV 75 mls/hr DIRECT LAUREN Administration Morphine Sulfate 2 mg 07/01/18 16:33 07/02/18 02:26 Morphine IV 2 mg Q4H PRN Administration Pain, Moderate (4-6) Ondansetron HCl 4 mg 07/01/18 16:34 Zofran IV Q8H PRN Nausea And Vomiting Oxycodone/Acetaminophen 1 tab 07/01/18 16:34 Percocet 5/325 PO Q6H PRN Pain, Moderate (4-6) Sodium Chloride 10 ml 07/01/18 22:00 07/02/18 10:17 Sodium Chloride Flush Syringe 10 Ml IV 10 ml BID LAUREN Administration Sodium Chloride 10 ml 07/01/18 16:34 Sodium Chloride Flush Syringe 10 Ml IV PRN PRN LINE FLUSH
[2018-07-02] MEDS ORDERED: LAMOTRIGINE 200 MG PO SCH (13:15)
[2018-07-02] MEDS ORDERED: NON-FORMULARY (Loratadine 10 MG) PO SCH (13:15)
[2018-07-02] MEDS ORDERED: HALDOL IM PRN (13:16)
[2018-07-02] MEDS: CLARITIN PO SCH (17:00)
[2018-07-02] MEDS: LaMICtal PO SCH ×2 (17:00→23:04)
[2018-07-02] MEDS: NACL 0.9% 1000 ML 1,000 ML IV SCH (17:01)
[2018-07-02] MEDS ORDERED: CLONAZEPAM 2 MG PO SCH (22:00)
[2018-07-02] MEDS ORDERED: NON-FORMULARY (Mirtazapine 15 MG) PO SCH (22:00)
[2018-07-02] MEDS ORDERED: QUETIAPINE 300 MG PO SCH (22:00)
[2018-07-02] MEDS: REMERON PO SCH (23:06)
--- NOTE | 2018-07-02 23:23 | Consultation ---
History of Present Illness - Reason for Consult Consult date: 07/02/18 acute renal failure - History of Present Illness The patient is a 32 YO male with history significant for Autism who was treated for accidental Ibuprofen overdose at this facility and discharged yesterday who presented to ER the same day with vomiting and lethargy. Patient was not able to provide any history. On arrival to the ED the patient's blood pressure was 88/55 with a heart rate of 110 and the patient was somnolent. Labs were significant for creat 2.7. Nephrology was consulted for further evaluation. Past History Past Medical History: other (Autism) Medications and Allergies Allergies Allergy/AdvReac Type Severity Reaction Status Date / Time No Known Allergies Allergy Verified 07/01/18 11:52 Home Medications Medication Instructions Recorded Confirmed Last Taken Type Loratadine 10 mg PO DAILY 06/30/18 07/01/18 Unknown History Mirtazapine 15 mg PO HS 06/30/18 07/01/18 Unknown History QUEtiapine 300 mg PO HS 06/30/18 07/01/18 Unknown History clonazePAM 2 mg PO HS 06/30/18 07/01/18 Unknown History lamoTRIgine 200 mg PO BID 06/30/18 07/01/18 Unknown History Active Meds: Active Medications Acetaminophen (Tylenol) 650 mg PO Q4H PRN PRN Reason: Pain MILD(1-3)/Fever >100.5/MEJIA Clonazepam (Klonopin) 2 mg PO QHS [facility] Last Admin: 07/02/18 23:05 Dose: 2 mg Documented by: Famotidine (Pepcid) 20 mg IV BID [facility] Last Admin: 07/02/18 23:05 Dose: 20 mg Documented by: Haloperidol Lactate (Haldol) 5 mg IM Q6H PRN PRN Reason: Agitation Cefepime HCl (Maxipime/Ns 2 Gm/100 Ml) 2 gm in 100 mls @ 200 mls/hr IV Q8HR [facility]; Protocol Last Admin: 07/02/18 14:00 Dose: 200 mls/hr Documented by: Sodium Chloride (Nacl 0.9% 1000 Ml) 1,000 mls @ 75 mls/hr IV DIRECT [facility] Last Admin: 07/02/18 17:01 Dose: 75 mls/hr Documented by: Lamotrigine (Lamictal) 200 mg PO BID [facility] Last Admin: 07/02/18 23:04 Dose: 200 mg Documented by: Loratadine (Claritin) 10 mg PO DAILY [facility] Last Admin: 07/02/18 17:00 Dose: 10 mg Documented by: Mirtazapine (Remeron) 15 mg PO QHS [facility] Last Admin: 07/02/18 23:06 Dose: 15 mg Documented by: Morphine Sulfate (Morphine) 2 mg IV Q4H PRN PRN Reason: Pain, Moderate (4-6) Last Admin: 07/02/18 02:26 Dose: 2 mg Documented by: Oxycodone/Acetaminophen (Percocet 5/325) 1 tab PO Q6H PRN PRN Reason: Pain, Moderate (4-6) Quetiapine Fumarate (Seroquel) 300 mg PO QHS [facility] Last Admin: 07/02/18 23:04 Dose: 300 mg Documented by: Sodium Chloride (Sodium Chloride Flush Syringe 10 Ml) 10 ml IV BID [facility] Last Admin: 07/02/18 23:06 Dose: 10 ml Documented by: Sodium Chloride (Sodium Chloride Flush Syringe 10 Ml) 10 ml IV PRN PRN PRN Reason: LINE FLUSH Review of Systems ROS unobtainable: due to mental status Exam - Vital Signs Vital signs: Vital Signs Temp Pulse Resp BP Pulse Ox 97.9 F 80 18 104/71 99 07/01/18 12:46 07/01/18 12:46 07/01/18 12:46 07/01/18 12:46 07/01/18 12:46 - General Appearance General appearance: well-developed, well-nourished, appears stated age, other (not in distress, on restrains) EENT: ATNC, PERRL Neck: Present: neck supple, trachea midline Respiratory: Clear to Ascultation Heart: regular, S1S2, no murmurs Gastrointestinal: Present: normoactive bowel sounds. Absent: tenderness, distended Integumentary: no rash, warm and dry Neurologic: other (alert, non-vernal, not following any command) Musculoskeletal: Present: other (no edema) Results - Lab Results 07/02/18 06:07 07/03/18 10:24 Most recent lab results Calcium 8.6 mg/dL (8.4-10.2) 07/02/18 06:07 Phosphorus 2.80 mg/dL (2.5-4.5) 07/02/18 06:07 Magnesium 2.50 mg/dL (1.7-2.3) H 07/02/18 06:07 Assessment and Plan 1. Acute kidney injury: Likely vasomotor MAXIME in the setting of NSAIDs and volume depletion. Urine studies pending. Continue IV fluids. Renal function improving. Monitor renal function. Avoid nephrotoxic agents. Meds dosage based on GFR. 2. FEN: Metabolic acidosis, monitor. Monitor lytes. 3. NSAID OD.
--- NOTE | 2018-07-03 08:02 | Progress Note ---
Assessment and Plan 1. Acute kidney injury: Likely vasomotor MAXIME in the setting of NSAIDs and volume depletion. Urine studies pending. Continue IV fluids. Renal function improving. Monitor renal function. Avoid nephrotoxic agents. Meds dosage based on GFR. 2. FEN: Metabolic acidosis, improved. Monitor lytes. 3. NSAID OD. 4. Autism. Subjective Date of service: 07/03/18 Interval history: Patient was seen and examined at the bedside. Objective - Vital Signs Vital signs: Vital Signs - 12hr 07/02/18 07/03/18 23:11 05:30 Temperature 98.1 F 98.0 F Pulse Rate 93 H 63 Respiratory 16 16 Rate Blood Pressure 108/70 91/57 O2 Sat by Pulse 97 99 Oximetry - General Appearance General appearance: well-developed, well-nourished, appears stated age, other (no distress, on restrains) EENT: ATNC, PERRL Neck: supple Respiratory: Present: Clear to Ascultation Cardiology: regular, S1S2, no murmurs Gastrointestinal: normoactive bowel sounds, no tenderness, no distended Integumentary: no rash, warm and dry Neurologic: other (non-verbal, not following any command) Musculoskeletal: other (no edema) - Lab 07/02/18 06:07 07/03/18 10:24 Most recent lab results Calcium 8.6 mg/dL (8.4-10.2) 07/02/18 06:07 Phosphorus 2.80 mg/dL (2.5-4.5) 07/02/18 06:07 Magnesium 2.50 mg/dL (1.7-2.3) H 07/02/18 06:07 Medications & Allergies - Medications Allergies/Adverse Reactions: Allergies No Known Allergies Allergy (Verified 07/01/18 11:52) Home Medications: Home Medications Medication Instructions Recorded Confirmed Last Taken Type Loratadine 10 mg PO DAILY 06/30/18 07/01/18 Unknown History Mirtazapine 15 mg PO HS 06/30/18 07/01/18 Unknown History QUEtiapine 300 mg PO HS 06/30/18 07/01/18 Unknown History clonazePAM 2 mg PO HS 06/30/18 07/01/18 Unknown History lamoTRIgine 200 mg PO BID 06/30/18 07/01/18 Unknown History Active Medications: Generic Name Dose Route Start Last Admin Trade Name Freq PRN Reason Stop Dose Admin Acetaminophen 650 mg 07/01/18 16:34 Tylenol PO Q4H PRN Pain MILD(1-3)/Fever >100.5/MEJIA Clonazepam 2 mg 07/02/18 22:00 07/02/18 23:05 Klonopin PO 2 mg QHS LAUREN Administration Famotidine 20 mg 07/01/18 22:00 07/02/18 23:05 Pepcid IV 20 mg BID LAUREN Administration Haloperidol Lactate 5 mg 07/02/18 13:16 Haldol IM Q6H PRN Agitation Cefepime HCl 2 gm in 100 mls @ 200 mls/hr 07/01/18 14:00 07/02/18 23:17 Maxipime/Ns 2 Gm/100 Ml IV 200 mls/hr Q8HR LAUREN Administration Protocol Sodium Chloride 1,000 mls @ 75 mls/hr 07/01/18 22:00 07/02/18 17:01 Nacl 0.9% 1000 Ml IV 75 mls/hr DIRECT LAUREN Administration Lamotrigine 200 mg 07/02/18 14:00 07/02/18 23:04 Lamictal PO 200 mg BID LAUREN Administration Loratadine 10 mg 07/02/18 14:00 07/02/18 17:00 Claritin PO 10 mg DAILY LAUREN Administration Mirtazapine 15 mg 07/02/18 22:00 07/02/18 23:06 Remeron PO 15 mg QHS LAUREN Administration Morphine Sulfate 2 mg 07/01/18 16:33 07/02/18 02:26 Morphine IV 2 mg Q4H PRN Administration Pain, Moderate (4-6) Oxycodone/Acetaminophen 1 tab 07/01/18 16:34 Percocet 5/325 PO Q6H PRN Pain, Moderate (4-6) Quetiapine Fumarate 300 mg 07/02/18 22:00 07/02/18 23:04 Seroquel PO 300 mg QHS LAUREN Administration Sodium Chloride 10 ml 07/01/18 22:00 07/02/18 23:06 Sodium Chloride Flush Syringe 10 Ml IV 10 ml BID LAUREN Administration Sodium Chloride 10 ml 07/01/18 16:34 Sodium Chloride Flush Syringe 10 Ml IV PRN PRN LINE FLUSH
[2018-07-03] MEDS: LaMICtal PO SCH ×2 (09:37→21:49)
[2018-07-03] MEDS: CLARITIN PO SCH (09:37)
[2018-07-03] MEDS: MAXIPIME/NS 2 GM/100 ML 2 GM/100 ML BAG IV SCH ×3 (10:00→21:50)
--- NOTE | 2018-07-03 10:35 | Progress Note ---
Assessment and Plan Assessment and plan: MAXIME Cr 1.9 today, improving Nephrology following cont iv fluids ATN Acute gastroenteritis. Monitor start Renal diet Autism cont meds supportive care full code status History Interval history: Elevated Creatinine Hospitalist Physical - Physical exam Narrative exam: Gen: Not in acute distress, lying in bed, HEENT: Normocephalic, atraumatic Neck: supple, no JVD Heart: S1 and S2 reg, no murmurs, rubs or gallop Lungs: Clear, no crackles, no wheeze Abd: soft, non tender, non distended, normal BS Ext: No edema, no clubbing, no cyanosis, Neuro: Awake,alert, Autistic - Constitutional Vitals: Temp Pulse Resp BP Pulse Ox 98.0 F 63 16 91/57 99 07/03/18 05:30 07/03/18 05:30 07/03/18 05:30 07/03/18 05:30 07/03/18 05:30 Results - Labs CBC & Chem 7: 07/02/18 06:07 07/03/18 10:24 Labs: Laboratory Last Values WBC 6.4 K/mm3 (4.5-11.0) 07/02/18 06:07 RBC 4.23 M/mm3 (3.65-5.03) 07/02/18 06:07 Hgb 12.7 gm/dl (11.8-15.2) 07/02/18 06:07 Hct 38.4 % (35.5-45.6) 07/02/18 06:07 MCV 91 fl (84-94) 07/02/18 06:07 MCH 30 pg (28-32) 07/02/18 06:07 MCHC 33 % (32-34) 07/02/18 06:07 RDW 16.9 % (13.2-15.2) H 07/02/18 06:07 Plt Count 310 K/mm3 (140-440) 07/02/18 06:07 Lymph % (Auto) 21.0 % (13.4-35.0) 07/02/18 06:07 [place] % (Auto) 11.3 % (0.0-7.3) H 07/02/18 06:07 Eos % (Auto) 2.0 % (0.0-4.3) 07/02/18 06:07 Baso % (Auto) 0.5 % (0.0-1.8) 07/02/18 06:07 Lymph # 1.3 K/mm3 (1.2-5.4) 07/02/18 06:07 [place] # 0.7 K/mm3 (0.0-0.8) 07/02/18 06:07 Eos # 0.1 K/mm3 (0.0-0.4) 07/02/18 06:07 Baso # 0.0 K/mm3 (0.0-0.1) 07/02/18 06:07 Seg Neutrophils % 65.2 % (40.0-70.0) 07/02/18 06:07 Seg Neutrophils # 4.2 K/mm3 (1.8-7.7) 07/02/18 06:07 PT 14.4 Sec. (12.2-14.9) 07/01/18 12:21 INR 1.05 (0.87-1.13) 07/01/18 12:21 APTT 27.3 Sec. (24.2-36.6) 07/01/18 12:21 Sodium 138 mmol/L (137-145) 07/02/18 06:07 Potassium 4.5 mmol/L (3.6-5.0) 07/02/18 06:07 Chloride 104.0 mmol/L (98-107) 07/02/18 06:07 Carbon Dioxide 19 mmol/L (22-30) L 07/02/18 06:07 20 mmol/L 07/02/18 06:07 BUN 22 mg/dL (9-20) H 07/02/18 06:07 1.9 mg/dL (0.8-1.5) H 07/02/18 06:07 Estimated GFR 50 ml/min 07/02/18 06:07 12 % 07/02/18 06:07 Glucose 87 mg/dL (75-100) 07/02/18 06:07 Lactic Acid 1.70 mmol/L (0.7-2.0) 07/01/18 15:16 Calcium 8.6 mg/dL (8.4-10.2) 07/02/18 06:07 Phosphorus 2.80 mg/dL (2.5-4.5) 07/02/18 06:07 Magnesium 2.50 mg/dL (1.7-2.3) H 07/02/18 06:07 0.20 mg/dL (0.1-1.2) 07/02/18 06:07 AST 28 units/L (5-40) 07/02/18 06:07 ALT 35 units/L (7-56) 07/02/18 06:07 94 units/L (35-129) 07/02/18 06:07 8.0 g/dL (6.3-8.2) 07/02/18 06:07 4.7 g/dL (3.9-5) 07/02/18 06:07 1.4 % 07/02/18 06:07 Active Medications - Current Medications Current Medications: Generic Name Dose Route Start Last Admin Trade Name Freq PRN Reason Stop Dose Admin Acetaminophen 650 mg 07/01/18 16:34 Tylenol PO Q4H PRN Pain MILD(1-3)/Fever >100.5/MEJIA Clonazepam 2 mg 07/02/18 22:00 07/02/18 23:05 Klonopin PO 2 mg QHS LAUREN Administration Famotidine 20 mg 07/01/18 22:00 07/02/18 23:05 Pepcid IV 20 mg BID LAUREN Administration Haloperidol Lactate 5 mg 07/02/18 13:16 Haldol IM Q6H PRN Agitation Cefepime HCl 2 gm in 100 mls @ 200 mls/hr 07/01/18 14:00 07/02/18 23:17 Maxipime/Ns 2 Gm/100 Ml IV 200 mls/hr Q8HR LAUREN Administration Protocol Sodium Chloride 1,000 mls @ 75 mls/hr 07/01/18 22:00 07/02/18 17:01 Nacl 0.9% 1000 Ml IV 75 mls/hr DIRECT LAUREN Administration Lamotrigine 200 mg 07/02/18 14:00 07/03/18 09:37 Lamictal PO 200 mg BID LAUREN Administration Loratadine 10 mg 07/02/18 14:00 07/03/18 09:37 Claritin PO 10 mg DAILY LAUREN Administration Mirtazapine 15 mg 07/02/18 22:00 07/02/18 23:06 Remeron PO 15 mg QHS LAUREN Administration Morphine Sulfate 2 mg 07/01/18 16:33 07/02/18 02:26 Morphine IV 2 mg Q4H PRN Administration Pain, Moderate (4-6) Oxycodone/Acetaminophen 1 tab 07/01/18 16:34 Percocet 5/325 PO Q6H PRN Pain, Moderate (4-6) Quetiapine Fumarate 300 mg 07/02/18 22:00 07/02/18 23:04 Seroquel PO 300 mg QHS LAUREN Administration Sodium Chloride 10 ml 07/01/18 22:00 07/02/18 23:06 Sodium Chloride Flush Syringe 10 Ml IV 10 ml BID LAUREN Administration Sodium Chloride 10 ml 07/01/18 16:34 Sodium Chloride Flush Syringe 10 Ml IV PRN PRN LINE FLUSH
[2018-07-03] MEDS: PEPCID IV SCH ×2 (11:14→21:50)
[2018-07-03] MEDS: SODIUM CHLORIDE FLUSH SYRINGE 10 ML IV SCH ×2 (11:23→21:50)
[2018-07-03 11:34] LABS: BUN/Creatinine Ratio 8; Blood Urea Nitrogen 11 mg/dL (9-20); Calcium 8.6 mg/dL (8.4-10.2); Hemolysis Index 1
--- NOTE | 2018-07-03 15:19 | Vascular Lab Report ---
PROCEDURE: VL VENOUS DUPLEX UE RT HISTORY: swelling right upper ext FINDINGS: Real-time ultrasound of the right arm was performed using grayscale and color Doppler image s. These images demonstrate no evidence of deep venous thrombus in the right internal jugular, subclavia n, axillary or brachial veins. There is superficial venous thrombus in the right cephalic vein in the distal upper arm and antecubit al fossa. The basilic vein, ulnar vein and radial vein are all patent. IMPRESSION: No DVT in right arm Superficial venous thrombus of right cephalic vein This document is electronically signed by Peng Chavez MD., Jul 03 2018 03:16:36 PM ET
[2018-07-03] MEDS: REMERON PO SCH (21:50)
[2018-07-04] MEDS: NACL 0.9% 1000 ML 1,000 ML IV SCH (00:32)
[2018-07-04 06:03] LABS: BUN/Creatinine Ratio 9; Blood Urea Nitrogen 10 mg/dL (9-20); Calcium 8.5 mg/dL (8.4-10.2); Hemolysis Index 121
[2018-07-04] MEDS: PEPCID IV SCH (10:02)
[2018-07-04] MEDS: CLARITIN PO SCH (10:02)
[2018-07-04] MEDS: LaMICtal PO SCH (10:02)
[2018-07-04] MEDS: SODIUM CHLORIDE FLUSH SYRINGE 10 ML IV SCH (10:03)
--- NOTE | 2018-07-04 11:24 | Discharge Summary ---
Providers - Providers Date of Admission: 07/01/18 16:33 Date of discharge: 07/04/18 Attending physician: MARY TABARES 07/01/18 21:13 Consult to Physician [CONS] Routine Comment: Consulting Provider: MELIA FENTON Physician Instructions: Reason For Exam: MAXIME Primary care physician: MARIBEL YAO MD Hospitalization Condition: Fair Hospital course: Patient is 32 yo with autism, presented with nausea, vomiting, generalized weakness and lethargy. He was just recently discharged from hospital and presents back with above symptoms. He was seen and evaluated in [facility] and diagnosed with acute kidney injury due to vasomotor nephropathy with Cr 2.7 He was started on IV fluids and admitted. Nephrology was consulted he was managed. Creatinine improved after a few days, normalized to creatinine of 1.1 on 07/03/2018 so was discharged home. Total time spent, 32 mins Disposition: DC-01 TO HOME OR SELFCARE - Discharge Diagnoses (1) Vasomotor nephropathy Status: Acute (2) Autism Status: Acute (3) Acute renal failure Status: Acute (4) Hypotension Status: Acute (5) Dehydration Status: Acute Core Measure Documentation - Palliative Care Palliative Care/ Comfort Measures: Not Applicable - Core Measures Any of the following diagnoses?: none Exam - Constitutional Vitals: Temp Pulse Resp BP Pulse Ox 98.5 F 56 L 16 104/70 98 07/04/18 05:26 07/04/18 05:26 07/04/18 05:26 07/04/18 05:26 07/04/18 05:26 Plan Activity: advance as tolerated Diet: regular Additional Instructions: 1.Follow up with PCP in 1 week. 2.Repeat serum BMP in 1 week. Follow up with: MARIBEL BARRIENTOS MD [Primary Care Provider] - 7 Days
[2018-07-04 12:39] VITALS: BP 124/87
--- NOTE | 2018-07-04 13:07 | Progress Note ---
Assessment and Plan 1. Acute kidney injury: Likely vasomotor MAXIME in the setting of NSAIDs and volume depletion. Urine studies pending. Continue IV fluids. Renal function has improved. Monitor renal function. Avoid nephrotoxic agents. Meds dosage based on GFR. 2. FEN: Metabolic acidosis, improved. Monitor lytes. 3. NSAID OD. 4. Autism. Subjective Date of service: 07/04/18 Interval history: Patient was seen and examined at the bedside. Sitter at the bedside. Objective - Vital Signs Vital signs: Vital Signs - 12hr 07/04/18 07/04/18 05:26 12:36 Temperature 98.5 F 98.2 F Pulse Rate 56 L Respiratory 16 20 Rate Blood Pressure 124/87 Blood Pressure 104/70 [Right] O2 Sat by Pulse 98 Oximetry - General Appearance General appearance: well-developed, well-nourished, appears stated age, other (not in distress) EENT: ATNC, PERRL, mucous membranes moist, hearing intact, vision intact Neck: supple Respiratory: Present: Clear to Ascultation Cardiology: regular, S1S2, no murmurs Gastrointestinal: normoactive bowel sounds, no tenderness, no distended Integumentary: no rash Neurologic: other (not following any command) Musculoskeletal: other (no edema) - Lab 07/02/18 06:07 07/04/18 05:17 Most recent lab results Calcium 8.5 mg/dL (8.4-10.2) 07/04/18 05:17 Phosphorus 2.80 mg/dL (2.5-4.5) 07/02/18 06:07 Magnesium 2.50 mg/dL (1.7-2.3) H 07/02/18 06:07 Medications & Allergies - Medications Allergies/Adverse Reactions: Allergies No Known Allergies Allergy (Verified 07/01/18 11:52) Home Medications: Home Medications Medication Instructions Recorded Confirmed Last Taken Type Loratadine 10 mg PO DAILY 06/30/18 07/01/18 Unknown History Mirtazapine 15 mg PO HS 06/30/18 07/01/18 Unknown History QUEtiapine 300 mg PO HS 06/30/18 07/01/18 Unknown History clonazePAM 2 mg PO HS 06/30/18 07/01/18 Unknown History lamoTRIgine 200 mg PO BID 06/30/18 07/01/18 Unknown History Active Medications: Generic Name Dose Route Start Last Admin Trade Name Freq PRN Reason Stop Dose Admin Acetaminophen 650 mg 07/01/18 16:34 Tylenol PO Q4H PRN Pain MILD(1-3)/Fever >100.5/MEJIA Clonazepam 2 mg 07/02/18 22:00 07/03/18 21:50 Klonopin PO 2 mg QHS LAUREN Administration Famotidine 20 mg 07/01/18 22:00 07/04/18 10:02 Pepcid IV 20 mg BID LAUREN Administration Haloperidol Lactate 5 mg 07/02/18 13:16 Haldol IM Q6H PRN Agitation Cefepime HCl 2 gm in 100 mls @ 200 mls/hr 07/01/18 14:00 07/03/18 21:50 Maxipime/Ns 2 Gm/100 Ml IV 200 mls/hr Q8HR LAUREN Administration Protocol Sodium Chloride 1,000 mls @ 75 mls/hr 07/01/18 22:00 07/04/18 00:32 Nacl 0.9% 1000 Ml IV 75 mls/hr DIRECT LAUREN Administration Lamotrigine 200 mg 07/02/18 14:00 07/04/18 10:02 Lamictal PO 200 mg BID LAUREN Administration Loratadine 10 mg 07/02/18 14:00 07/04/18 10:02 Claritin PO 10 mg DAILY LAUREN Administration Mirtazapine 15 mg 07/02/18 22:00 07/03/18 21:50 Remeron PO 15 mg QHS LAUREN Administration Morphine Sulfate 2 mg 07/01/18 16:33 07/02/18 02:26 Morphine IV 2 mg Q4H PRN Administration Pain, Moderate (4-6) Oxycodone/Acetaminophen 1 tab 07/01/18 16:34 Percocet 5/325 PO Q6H PRN Pain, Moderate (4-6) Quetiapine Fumarate 300 mg 07/02/18 22:00 07/03/18 21:49 Seroquel PO 300 mg QHS LAUREN Administration Sodium Chloride 10 ml 07/01/18 22:00 07/04/18 10:03 Sodium Chloride Flush Syringe 10 Ml IV 10 ml BID LAUREN Administration Sodium Chloride 10 ml 07/01/18 16:34 Sodium Chloride Flush Syringe 10 Ml IV PRN PRN LINE FLUSH
== END 2018-07-04 13:20 | disposition home or self-care (01) | DRG 393 ==
LOC: ED 11:50 → 3A 16:33
PROVIDERS: ADMIT Internal Medicine; ATTEND Internal Medicine
DX: K52.1 Toxic gastroenteritis and colitis (principal); N17.0 Acute kidney failure with tubular necrosis; F84.0 Autistic disorder; E87.2 Acidosis; I95.9 Hypotension, unspecified; T39.315A Adverse effect of propionic acid derivatives, initial encounter; Y92.89 Other specified places as the place of occurrence of the external cause
CPT/HCPCS: 36415; 71045; 80048; 80053; 80076; 80307; 80320; 81001; 82140; 83735; 84100; 85025; 85610; 85730; 87040; 93005; 93010; 96361; 96374; 96375; G0378; C9113; G0480; J0692; J2270; J2405; J7030